=== PATIENT | male | born 1995 | race African-American/Black ===

== ENCOUNTER 2017-10-04 18:23 | Emergency (ER) | payer SELFPAY ==
[2017-10-04] MEDS ORDERED: EPINEPHrine 1 MG/ML AMPUL IM ONE (18:36)
[2017-10-04] MEDS ORDERED: DEXAMETHASONE SOD PHOSPHATE 10 MG/ML VIAL ONE (18:36)
[2017-10-04] MEDS ORDERED: DEXAMETHASONE SOD PHOSPHATE 10 MG/ML VIAL IM ONE (18:37)
[2017-10-04] MEDS ORDERED: EPINEPHrine 1 MG/ML AMPUL ONE (18:39)
[2017-10-04] MEDS ORDERED: ALBUTEROL SULFATE 2.5 MG/0.5 ML VIAL.NEB IH ONE ×2 (18:40→18:44)
[2017-10-04] MEDS ORDERED: FAMOTIDINE 10 MG/ML VIAL IV ONE ×2 (18:44→18:45)
--- NOTE | 2017-10-04 18:51 | ERNOTE ---
Allergy Symptoms - ER Date of Service: 10/04/17 Presenting Symptoms: throat swelling, skin rash, itching Time Seen by Provider: 10/04/17 18:36 Source: patient Immunizations: IMMUNIZATION HX Immunizations Up to Date Yes History of Influenza Vaccine Yes Allergies/Adverse Reactions: Allergies nuts Allergy (Uncoded 10/04/17 18:39) Home Medications: HOME MEDICATIONS Prednisone 50 mg PO DAILY #5 tablet 10/04/17 [Last Taken Unknown] - History of Present Illness Narrative: Patient is a 21-year-old -[place] male who presents to the emergency room with a past medical history significant for peanut allergy. Apparently he had some stuffing with pecans as part of the face given lunch. Soon after that he started having tingling in the throat area. He decided to come to the emergency room for further management. He also feels pressure in his chest, dyspnea. He denies any tongue swelling, lip swelling, pleuritic symptoms, fever , chills, night sweats, Timing: Present: constant Location swelling: Present: throat Identified cause?: Yes Exposure: Present: nuts, other Review of Systems - Review of Systems Constitutional: Present: See HPI, other ENT: Present: See HPI Respiratory: Present: See HPI Cardiology: Present: See HPI Gastrointestinal/Abdominal: Present: See HPI Genitourinary: Present: See HPI Musculoskeletal: Present: See HPI Skin: Present: See HPI - Patient's Past Medical History Patient History - Medical: No pertinent hx Patient History - Cardiac/Respiratory: No pertinent hx Patient History - Cancer: No Hx of Cancer Patient History - Surgical Procedures: No surgical history - Family History Mother Family History - Cardiac/Respiratory: Asthma - Social History Living Situations: home Psych History: No pertinent hx Smoking Status: Never smoker Alcohol Use: none Drug Use: none - Immunizations Immunizations Up to Date: Yes History of Influenza Vaccine: Yes Physical Exam - Physical Exam General Appearance: Present: wd/wn, alert, mild distress Head Exam: Present: normal inspection, no evidence of injury Eye Exam: Normal inspection: bilateral, PERRL: bilateral, EOMI: bilateral Ears, Nose, Throat: Present: normal ENT inspection Neck: Present: normal inspection, nontender, supple, full range of motion Respiratory: Present: no respiratory distress, no accessory muscle use, chest nontender, other - course breath sounds Cardiovascular/Chest: Present: no murmur, normal peripheral pulses, tachycardia Gastrointestinal/Abdominal: Present: normal bowel sounds, nontender, nondistended, soft, no organomegaly Male Genitals Exam: Present: normal genitalia Back Exam: Present: normal inspection, normal range of motion, no vertebral tenderness Extremity Exam: Present: normal inspection, extremity edema Neurological Exam: Present: alert, oriented, normal mood/affect ED Progress - Vital Signs Patient's Vital Signs:: I have reviewed the patient's vital signs. Vital Signs: Vital Signs 10/04/17 10/04/17 18:34 18:46 Temperature 36.8 C Pulse Rate 102 H 109 H Respiratory 18 18 Rate Blood Pressure 133/83 O2 Sat by Pulse 97 97 Oximetry - Progress/Reassessment Chief Complaint: Allergic Reaction Progress:: Improved Progress Note-Subjective: 10/04/17 19:17 Arrival patient was given benefit 0.3 mg IM 1. In addition he received dexamethasone 10 mg IM 1, albuterol 2.5 mg per 3 mL's nebulizer treatment 1. Pepcid 40 mg IV 1 with a good response. Upon my reassessment he feels somewhat better his chest pressure has resolved and so is a tickling sensation in his throat. Patient received prednisone 40 mg by mouth 1 hour observation for another 45 minutes and discharge him from the emergency room with a prednisone prescription for 5 days. Departure Clinical Impression: Allergic reaction Qualifiers: Encounter type: initial encounter Qualified Code(s): T78.40XA - Allergy, unspecified, initial encounter - Departure Disposition: Home self-care Condition: Stable Instructions: Angioedema, [id number] Prescriptions: Prednisone 50 mg PO DAILY #5 tablet
[2017-10-04] MEDS ORDERED: predniSONE 20 MG TABLET PO ONE (19:21)
[2017-10-04] MEDS ORDERED: predniSONE 20 MG TABLET ONE (19:28)
[2017-10-04 20:03] VITALS: BP 132/84
== END 2017-10-04 20:03 | disposition home or self-care (01) ==
LOC: ER 18:23
DX: T78.1XXA Other adverse food reactions, not elsewhere classified, initial encounter (principal); R07.0 Pain in throat; R07.89 Other chest pain